=== PATIENT | female | born 1980 ===

== ENCOUNTER → 2018-09-17 13:10 | Outpatient (REF) | payer OTHER, SELFPAY | LOC: LAB 13:10 | PROVIDERS: Visit Provider Acupuncturist | DX: N76.0 Acute vaginitis (principal) | CPT/HCPCS: 87070; 87205 ==

== ENCOUNTER → 2018-09-20 21:19 | Outpatient (REF) | payer OTHER, SELFPAY ==
[2018-09-20 21:34] LABS: Add Manual Diff / Slide Review NO; Basophils Percent Auto 0.6 % (0-2); Hemoglobin 14.1 g/dL (12.0-16.0); Lymphocytes Percent Auto 37.7 % (25-40); Mean Corpuscular HGB Conc 33.7 % (30-36); Mean Corpuscular Hemoglobin 30.1 PG (26-34); Mean Corpuscular Volume 89.4 fL (80-100); Monocytes Percent Auto 7.4 % (3-14); Neutrophils Absolute Auto 3100 /uL (3000-5900); Neutrophils Percent Auto 54.3 % (50-75); Platelet Count 262 X10^3/uL (150-400); Red Cell Distribution Width 12.6 % (11.6-14.8); White Blood Cell Count 5.7 X10^3/uL (4.5-11.0)
[2018-09-20 23:39] LABS: Alanine Aminotransferase 22 IU/L (9-52); Albumin 4.3 g/dL (3.5-5.0); Albumin Globulin Ratio 1.5 (1.0-2.8); Alkaline Phosphatase 48 U/L (38-126); Aspartate Aminotransferase 17 IU/L (14-36); Bilirubin Total 0.5 mg/dL (0.2-1.3); Blood Urea Nitrogen 9 mg/dL (7-17); Calcium 9.2 mg/dL (8.4-10.2); Carbon Dioxide 30 mmol/L (22-32); Chloride 100 mmol/L (98-107); Estimated Glomerular Filt Rate > 60.0 mL/min (>60); Globulin 2.8 g/dL (1.7-4.1); Glucose 90 mg/dL (70-100); HEMOLYSIS < 15 (0-50); Potassium 4.1 mmol/L (3.4-5.1); Sodium 142 mmol/L (137-145); Total Protein 7.1 g/dL (6.3-8.2)
[2018-09-20 23:57] LABS: Free T3, Triiodothyronine Free 3.28 pg/mL (2.77-5.27); Free T4, Direct Thyroxine 1.23 ng/dL (0.78-2.19)
[2018-09-21 00:10] LABS: Thyroid Stimulating Hormone 3.78 uIU/mL (0.47-4.68)
[2018-09-21 00:14] LABS: Ferritin 21.9 ng/mL (6.27-137)
[2018-09-22 15:18] LABS: CMV IgM Antibody < 30.00 AU/mL (< 30.00)
[2018-09-23 14:07] LABS: Anti Thyroglobulin Antibody 124 IU/mL (< 2); Thyroid Peroxidase Antibodies 318 IU/mL (< 9)
[2018-09-23 15:01] LABS: C.albicans IgA 0.5; C.albicans IgG 0.8; C.albicans IgM 0.8 (<1.0)
[2018-09-26 15:36] LABS: Triiodothyronine T3 Reverse 18 ng/dL (8-25)
== END ==
LOC: LAB 21:19
PROVIDERS: Visit Provider Acupuncturist
DX: K90.0 Celiac disease (principal); R53.83 Other fatigue
CPT/HCPCS: 80053; 82728; 84439; 84443; 84481; 84482; 85025; 86376; 86628; 86644; 86645; 86665; 86790; 86800

== ENCOUNTER → 2018-09-28 21:27 | Outpatient (REF) | payer OTHER, SELFPAY ==
[2018-09-28 21:30] LABS: RBC Urine None Seen (0-5/HPF); WBC Urine None Seen (0-5/HPF)
[2018-09-28 21:46] LABS: Appearance Urine UA CLEAR; Bilirubin Urine UA NEGATIVE (NEGATIVE); Color Urine UA YELLOW; Glucose Urine UA NEGATIVE (Normal); Ketones Urine UA NEGATIVE (NEGATIVE); Leukocyte Esterase Urine UA NEGATIVE (NEGATIVE); Nitrite Urine UA NEGATIVE (Negative); Occult Blood Urine UA NEGATIVE (Negative); Protein Urine UA NEGATIVE (Negative); Specific Gravity Urine UA <=1.005 (1.000-1.035); Urobilinogen Urine UA 0.2 E.U./dL (0.2); pH Urine UA 6.5 (4.5-8.0)
[2018-09-28 22:04] LABS: Bacteria Urine Few (2-10); Culture Indicated Urine Cult Not Indicated; Squamous Epithelial Cell Urine 5-10 /HPF
== END ==
LOC: LAB 21:27
PROVIDERS: Visit Provider Acupuncturist
DX: R35.0 Frequency of micturition (principal)
CPT/HCPCS: 81001